=== PATIENT | female | born 1970 | race Caucasian/White ===

== ENCOUNTER 2024-03-27 11:12 | Emergency (ER) | payer OTHER ==
[~2024-03-27] VITALS: Ht 165.1 cm; Wt 59.9 kg
[~2024-03-27 11:12] MED LIST: ANAPROX DS550 MG PO; ANTIVERT/2525 M1 PO; CLEOCIN HCL300 MG PO; CLINDAMYCIN150 MG PO; LEVOTHYROXIN0.025 MG PO; MACROBID100 M1 PO; MOTRIN800 MG PO; Meclizine25 MG PO; PREDNISONE10 MG PO; TRANSDERM0.33 MG/24 T; VICODIN 5/500 505 MG PO; VICODIN 500 MG-1 TAB PO; ZITHROMAX Z PA250 MG PO; ZOFRAN ODT4 MG SL
[2024-03-27 11:35] VITALS: BP 140/78
[2024-03-27] MEDS ORDERED: CYCLOBENZAPRINE5 M3 PO (13:44)
== END 2024-03-27 14:09 | disposition home or self-care (01) ==
LOC: ED 11:12
DX: M54.6 Pain in thoracic spine (principal); R51.9 Headache, unspecified; M54.2 Cervicalgia; Z88.0 Allergy status to penicillin; Z79.899 Other long term (current) drug therapy; Z98.890 Other specified postprocedural states; Z98.51 Tubal ligation status; Z90.49 Acquired absence of other specified parts of digestive tract; V43.92XA Unspecified car occupant injured in collision with other type car in traffic accident, initial encounter; Y93.89 Activity, other specified; Y92.488 Other paved roadways as the place of occurrence of the external cause; Y99.8 Other external cause status